=== PATIENT | female | born 1950 | race Caucasian/White ===

== ENCOUNTER 2022-04-21 07:33 | Day surgery (SDC) | payer OTHER, SELFPAY ==
[2022-04-15 10:04] VITALS: BMI 20.8
[2022-04-21 08:30] VITALS: BP 187/83; PULSE 66; RESP 16; TEMP 36.7; O2SAT 100
[2022-04-21] MEDS: OFLOXACIN 0.3% OPHTH SOLN 5 ML BTL 1 DROP AFFCTD EYE (08:40)
[2022-04-21] MEDS: TETRACAINE HCL 0.5% OPHTH SOLN 4 ML BTL 1 DROP AFFCTD EYE ×3 (08:40→08:50)
--- NOTE | 2022-04-21 09:04 | P.PNAN_ITS ---
Anes - Initial Pre Proc Eval Procedure: Operation Date: 04/21/22 09:00 Proposed Procedures p Cataract Extraction with Lens Implant-Right Eye - Hieu Queen MD Date/Time: 04/21/22 09:04 Surgeon: Hieu Queen MD Pre Op Diagnosis: Cataract Right Eye Patient Data Age: 72 Gender: F Height: 1.63 m Weight: 54 kg Last Vital Signs Temp 36.7 C 04/21/22 08:30 Pulse 66 04/21/22 08:30 Resp 16 04/21/22 08:30 BP 187/83 H 04/21/22 08:30 Pulse Ox 100 04/21/22 08:30 O2 Del Method Room Air 04/21/22 08:30 Allergies Allergy/AdvReac Type Severity Reaction Status Date / Time No Known Allergies Allergy Verified 04/21/22 08:14 Home Medications Medication Instructions Recorded Confirmed Type cholecalciferol (vitamin D3) 125 125 mcg PO DAILY 04/15/22 04/21/22 History mcg (5,000 unit) capsule (Dialyvite Vitamin D) levocetirizine 5 mg tablet (Xyzal) 5 mg PO HS 04/15/22 04/21/22 History prednisone 2.5 mg tablet 2.5 mg PO EVERY OTHER DAY 04/15/22 04/21/22 History prednisone 5 mg tablet 5 mg PO EVERY OTHER DAY 04/15/22 04/21/22 History Patient hx anesthesia problems: none Family hx anesthesia problems: none Results Review: All pre-operative results and documents have been reviewed as part of the pre- operative evaluation. [facility] Past Medical History Medical History Autoimmune hepatitis Social History Social History Smoking status: Never smoker Alcohol intake: never Substance use: never Substance use type: does not use Living arrangements: alone Spiritual care concerns: No Anes - Eval Final PreProcedure Day of Procedure 04/21/22 09:04 Patient weight: normal Heart: regular rate and rhythm Lungs: clear to auscultation Airway: Mallampati scale class II Neurological: other (alert) Last oral intake: >/= 8 hours ASA classification: III Emergent: no Anesthetic plan: proceed Anesthesia type and monitoring: monitored anesthesia care Results Review: All pre-operative results and documents have been reviewed as part of the pre- operative evaluation. Informed Consent: The patient's anesthetic plan and its attendant risks and benefits were discussed with the patient/family/POA. Questions were solicited and answers provided to the satisfaction of the patient/family/POA.
--- NOTE | 2022-04-21 09:08 | WPDHPUPDATE1 ---
History and Physical Update Update Date/Time: 04/21/22 09:08 History and Physical has been reviewed, including an updated exam of the patient. There are NO changes in the patient's condition. Risks, benefits, and alternatives have been discussed and questions answered. Patient agrees to proceed with procedure.
[2022-04-21] MEDS: LIDOCAINE HCL 2% JELLY 5 ML TUBE 1 APPLIC AFFCTD EYE (09:10)
[2022-04-21] MEDS: NEOMYCIN/POLYMYXIN/DEXAMETH OP OINT 3.5 GM TUBE 1 APPLIC AFFCTD EYE (09:20)
[2022-04-21] MEDS: LIDOCAINE HCL 1% PF INJ 5 ML VIAL 1 ML INTRAOCULA (09:23)
[2022-04-21] MEDS: HOME MEDICATION 1 EACH AFFCTD EYE (09:30)
[2022-04-21 09:33] VITALS: BP 140/76; PULSE 59; RESP 14; O2SAT 100
[2022-04-21] MEDS: acetaZOLAMIDE TAB 250 MG TABLET PO (09:35)
--- NOTE | 2022-04-21 10:50 | W.PM.PROC2 ---
Procedure Note - Detailed Date of Procedure 04/21/22 Pre-op Diagnosis Cataract Right Eye Post-op Diagnosis Same Procedure Performed Cataract Extraction (by Phacoemulsification) and lntraocular Lens Implant RIGHT eye Surgeon Hieu Queen MD Description of Procedure The eye was anesthetized with topical 0.75% bupivacaine. After intravenous sedation and placement of monitors, the patient was prepped and draped in the usual sterile manner. A lid speculum was placed. A paracentesis was made, and preservative free 1% lidocaine was instilled in the anterior chamber. The anterior chamber was then filled with Viscoat viscoelastic. A slick keratome was used to create the wound. Continuous tear anterior capsulotomy was performed. The lens was hydro dissected before being removed with phacoemulsification. The remaining lenticular cortex was removed with aspiration. The capsular bag was polished and filled with viscoelastic material. An intraocular lens was chosen, inspected, irrigated and placed within the capsular bag where it was seen to be centered and stable. The viscoelastic material was aspirated. The wound was closed and found to be watertight. Ciloxan drops were placed in the eye. The speculum was removed. A Garcia shield was applied. The patient tolerated the procedure well and left the operating room in satisfactory condition. Implants See chart Complications None Condition Stable Disposition Same day
--- NOTE | 2022-04-21 10:52 | WPDANESPN ---
Anes - Prog Note Post-Op Date/Time: 04/21/22 10:52 Cardiovascular status: normal Respiratory status: normal Airway patency: baseline Mental status: baseline Post-Op hydration status: normal Vital Signs: Last Vital Signs Temp 36.7 C 04/21/22 08:30 Pulse 59 L 04/21/22 09:33 Resp 14 04/21/22 09:33 BP 140/76 04/21/22 09:33 Pulse Ox 100 04/21/22 09:33 O2 Del Method Room Air 04/21/22 09:33 Pain Score (VAS): 0 Patient Feedback: Patient satisfied with anesthetic care.
== END 2022-04-21 10:00 | disposition home or self-care (01) ==
PROVIDERS: Visit Provider Student in an Organized Health Care Education/Training Program
PROC: (CPT 66983; principal; 2022-04-21 09:00)
DX: H25.11 Age-related nuclear cataract, right eye (principal)
CPT/HCPCS: 66984